=== PATIENT | female | born 1995 | race African-American/Black ===

== ENCOUNTER 2016-07-17 15:45 | Emergency (ER) | payer OTHER ==
[~2016-07-17 15:45] MED LIST: BENZ100C PO; CEPH500C PO; IBUP-1060 PO; Ibuprofen PO; OXYC-323 PO; PRED50TA PO
[2016-07-17 16:08] VITALS: BP 106/52
--- NOTE | 2016-07-17 16:15 | PHYS DOC ---
Past Medical History Past Medical History: Anemia, Anxiety, Asthma, Bipolar, Depression, Migraines Additional Past Medical Histor: mood disorder, ECZEMA Past Surgical History: Other Additional Past Surgical Histo: abscess left breast Alcohol Use: None Drug Use: None Adult General Chief Complaint Chief Complaint: SORE THROAT [facility] HPI Patient is a 20 year old female presents emergency Department today with complaint of atraumatic sore throat that began approximately 4 days ago. Patient also reports subjective fevers and chills. Patient also complains of nasal congestion and a nonproductive cough. She denies any shortness of breath, chest pain, exertional dyspnea, orthopnea or PND. She denies any known ill contacts patient denies antibiotic use, hospitalization or foreign travel within the past 90 days. Patient states that she has taken Tylenol today. Review of Systems Review of Systems Constitutional: Denies fever or chills [] Eyes: Denies change in visual acuity, redness, or eye pain [] HENT: Denies nasal congestion or sore throat [] Respiratory: Denies cough or shortness of breath [] Cardiovascular: No additional information not addressed in HPI [] GI: Denies abdominal pain, nausea, vomiting, bloody stools or diarrhea [] : Denies dysuria or hematuria [] Musculoskeletal: Denies back pain or joint pain [] Integument: Denies rash or skin lesions [] Neurologic: Denies headache, focal weakness or sensory changes [] Endocrine: Denies polyuria or polydipsia [] Allergies Allergies Allergies Coded Allergies Type Severity Reaction Last Updated Verified Penicillins Allergy Intermediate SWELLING 04/20/16 Yes influenza virus vaccine, specific Allergy Intermediate LOCAL REACTION "ARM SWELLS UP, REDNESS" 04/20/16 Yes Physical Exam Physical Exam Constitutional: Well developed, well nourished, no acute distress, non-toxic appearance. Patient is afebrile. HENT: Normocephalic, atraumatic, bilateral external ears normal, oropharynx moist, no oral exudates, clear rhinorrhea with boggy nasal mucosa. There is no trismus or hot potato speech. Posterior oropharynx is normal in appearance. There is no tonsillar exudative plaques or peritonsillar swelling. There is no peritonsillar swelling or uvular deviation. Eyes: PERRLA, EOMI, conjunctiva normal, no discharge. [] Neck: Normal range of motion, no tenderness, supple, no stridor. There is no meningismus. There is bilateral anterior and posterior cervical adenopathy. Cardiovascular:Heart rate regular rhythm, no murmur [] Lungs & Thorax: Bilateral breath sounds clear to auscultation [] Abdomen: Bowel sounds normal, soft, no tenderness, no masses, no pulsatile masses. [] Skin: Warm, dry, no erythema, no rash. Back: No tenderness, no CVA tenderness. [] Extremities: No tenderness, no cyanosis, no clubbing, ROM intact, no edema. [] Neurologic: Alert and oriented X 3, normal motor function, normal sensory function, no focal deficits noted. [] Psychologic: Affect normal, judgement normal, mood normal. [] Current Patient Data Vital Signs Vital Signs Date Time Temp Pulse Resp B/P Pulse Ox O2 Delivery O2 Flow Rate FiO2 07/17/16 16:08 98.6 95 18 100 Room Air 98.6 EKG EKG [] Radiology/Procedures Radiology/Procedures [] Course & Med Decision Making Course & Med Decision Making Rapid strep is negative. Patient's constellation of symptoms and physical exam are consistent with an upper respiratory infection. Based on inside of her symptoms. She is outside the room for treatment with influenza. Influenza test was not ordered. Dragon Disclaimer Dragon Disclaimer This electronic medical record was generated, in whole or in part, using a voice recognition dictation system. Departure Departure Impression: Primary Impression: Upper respiratory infection Disposition: 01 HOME, SELF-CARE Condition: GOOD Referrals: HENRY SMART Jr, MD (PCP) Patient Instructions: Upper Respiratory Infection, Adult, [id number] Additional Instructions: 1. Strep test today is negative. 2. Review the discharge instructions provided for self-care at home and reasons to return to the emergency department. 3. Follow-up with a primary care doctor within the next 5-7 days. If you do not have one, and a pamphlet is provided to you for assistance in finding one. Problem Qualifiers Primary Impression: Upper respiratory infection URI type: unspecified viral URI Qualified Code: J06.9 - Acute upper respiratory infection, unspecified LEXI SNOW Jul 17, 2016 16:15
[2016-07-18 08:00] LABS: NEGATIVE OBC STREP NEG; POSITIVE OBC STREP POS
== END 2016-07-17 20:46 | disposition home or self-care (01) ==
LOC: ER 15:45
DX: J06.9 Acute upper respiratory infection, unspecified (principal); J45.909 Unspecified asthma, uncomplicated; Z88.0 Allergy status to penicillin; Z88.7 Allergy status to serum and vaccine
CPT/HCPCS: 87070; 87880; 99284

== ENCOUNTER 2017-02-12 18:05 | Emergency (ER) | payer OTHER ==
[~2017-02-12] VITALS: Ht 160 cm; Wt 117.9 kg
[2017-02-12] MEDS ORDERED: IV NORMAL SALINE 1000ML BAG 1,000 ML IV SCH (18:25)
[2017-02-12] MEDS ORDERED: ONDANSETRON PF 4 MG/2 ML VIAL. IV ONE (18:30)
[2017-02-12 18:37] LABS: BILIRUBIN,URINE NEGATIVE (NEG); GLUCOSE,URINE NEGATIVE (NEG); NITRITE,URINE POSITIVE (NEG); PROTEIN,URINE NEGATIVE (NEG-TRACE); UROBILINOGEN,URINE 0.2 mg/dL (0.2 mg/dL)
[2017-02-12 18:42] LABS: BACTERIA,URINE MANY /HPF (0-FEW); RBC,URINE OCC /HPF (0-2); SQUAMOUS EPITHELIAL CELL,UR FEW /LPF
[2017-02-12 18:45] VITALS: BP 103/51
[2017-02-12 18:53] LABS: BASO % 0 % (0-3); EOS % 1 % (0-3); HEMOGLOBIN 11.3 g/dL (12.0-15.5); LYMPH # 1.3 x10^3/uL (1.0-4.8); LYMPH % 25 % (24-48); MEAN CORPUSCULAR HEMOGLOBIN 24 pg (25-35); MEAN CORPUSCULAR HGB CONC 31 g/dL (31-37); MEAN CORPUSCULAR VOLUME 76 fL (79-100); MONO % 9 % (0-9); NEUT % 65 % (31-73); PLATELET COUNT 149 x10^3/uL (140-400); RED BLOOD COUNT 4.77 x10^6/uL (3.50-5.40); RED CELL DISTRIBUTION WIDTH 18.2 % (11.5-14.5)
[2017-02-12 19:01] LABS: CALCIUM 8.9 mg/dL (8.5-10.1); CREATININE 0.6 mg/dL (0.6-1.0); GFR 154.2; POTASSIUM 3.4 mmol/L (3.5-5.1)
[2017-02-12 19:02] LABS: NEG OBC SER NEG; POS OBC SER POS
[2017-02-12 19:07] LABS: ALBUMIN 3.1 g/dL (3.4-5.0); ALBUMIN/GLOBULIN RATIO 0.8 (1.0-1.7); TOTAL BILIRUBIN 0.2 mg/dL (0.2-1.0); TOTAL PROTEIN 6.8 g/dL (6.4-8.2)
[2017-02-12] MEDS ORDERED: CONTRAST GIVEN MC PRN (19:45)
[2017-02-12] MEDS ORDERED: IOHEXOL 300 MG/ML 75 ML VIAL IV ONE (20:00)
[2017-02-12] MEDS ORDERED: IOHEXOL 240 MG/ML 50ML VIAL. PO ONE (20:00)
--- NOTE | 2017-02-12 20:34 | RAD ---
CT SCAN OF THE ABDOMEN AND PELVIS WITH IV CONTRAST. History: Nausea and vomiting and abdominal pain for 2 weeks Comparison:None. Procedure: Contiguous axial images of the abdomen and pelvis were performed after the administration of 75 cc of Omnipaque 300 IV contrast and oral contrast. CT Abdomen with contrast: Findings: Liver: Unremarkable Spleen: Top normal limits in size Pancreas: Unremarkable Adrenal Glands: Unremarkable Kidneys: Unremarkable There is no mass or lymphadenopathy. There is no free air. There is no free fluid. There is mild wall thickening of the splenic flexure of the colon without surrounding inflammation. CT Pelvis with Contrast: Findings: The urinary bladder appears normal. There is no free fluid. There is no lymphadenopathy. The appendix is normal. Impression: Mild wall thickening of the splenic flexure of the colon is consistent with colitis and could be infectious such as pseudomembranous colitis or could be inflammatory such as ulcerative colitis. There is no diverticulitis. There is no air in the wall to suggest ischemic colitis. PQRS Compliance Statement: One or more of the following individualized dose reduction techniques were utilized for this examination: 1. Automated exposure control 2. Adjustment of the mA and/or kV according to patient size 3. Use of iterative reconstruction technique Electronically signed by: Jarrell Anthony III, MD (02/12/2017 8:31 PM) [id number]
[2017-02-12] MEDS ORDERED: CIPR250T30 PO (21:24)
[2017-02-12] MEDS ORDERED: METR250T11 PO (21:24)
--- NOTE | 2017-02-12 21:24 | PHYS DOC ---
Past Medical History Past Medical History: Asthma Additional Past Medical Histor: MRSA in Left Breast wound Past Surgical History: No Surgical History Additional Past Surgical Histo: I/D Alcohol Use: None Drug Use: None Adult General Chief Complaint Chief Complaint: ABDOMINAL PAIN HPI HPI Patient is a 21 year old female brought to the ED by her mother with the complaint of some abdominal discomfort for about 2 weeks. She's had crampy abdominal pain, feels like period cramps but it's all over her abdomen. She's had some vomiting off and on, she vomited yesterday but not today. She's nauseated right now. They did stop it "go chicken go" on the way here and she ate 2 chicken strips. She has had a little diarrhea but the last time was last week. No blood in her vomit or diarrhea. She's had no UTI symptoms. She doesn't think she is , she's been using a control patch for 8 months. Her last menstrual period was about January 12-. She has taken 3 tests and they were all negative. She denies fever or chills. The pain has occasionally woken her up at night. She's had anorexia and also afraid to eat because her stomach will hurt. She's never had anything like this before. She has not had abdominal surgery. No one else at home is sick. Review of Systems Review of Systems Constitutional: Denies fever or chills [] GI: As in history of present illness : Denies dysuria or hematuria [] Current Medications Current Medications Current Medications Medications (Trade) Dose Ordered Sig/Marisol Start Time Stop Time Status Last Admin Dose Admin Ciprofloxacin (Cipro) 500 mg 1X ONCE 02/12/17 21:30 02/12/17 21:31 DC 02/12/17 21:31 500 MG Info (Do NOT chart on this entry -- for MONITORING) 1 each PRN DAILY PRN 02/12/17 19:45 02/12/17 21:34 DC Iohexol (Omnipaque 240 Mg/ml) 30 ml 1X ONCE 02/12/17 20:00 02/12/17 20:01 DC 02/12/17 20:10 30 ML Iohexol (Omnipaque 300 Mg/ml) 75 ml 1X ONCE 02/12/17 20:00 02/12/17 20:01 DC 02/12/17 20:10 75 ML Ondansetron HCl (Zofran) 4 mg 1X ONCE 02/12/17 18:30 02/12/17 18:40 DC 02/12/17 18:36 4 MG Sodium Chloride 1,000 ml @ 1,000 mls/hr Q1H 02/12/17 18:25 02/12/17 19:24 DC 02/12/17 18:36 1,000 MLS/HR Allergies Allergies Allergies Coded Allergies Type Severity Reaction Last Updated Verified Penicillins Allergy Intermediate SWELLING 04/20/16 Yes influenza virus vaccine, specific Allergy Intermediate LOCAL REACTION "ARM SWELLS UP, REDNESS" 04/20/16 Yes Physical Exam Physical Exam Constitutional: Well developed, well nourished, no acute distress, non-toxic appearance. Alert, mentating normally, ambulatory, no distress whatsoever ambulating to the room or hopping up on the cart for exam. HENT: Normocephalic, atraumatic, bilateral external ears normal, nose normal. [ ] Eyes: conjunctiva normal, no discharge. [] Neck: Normal range of motion, no stridor. [] Cardiovascular:Heart rate regular rhythm, no murmur [] Lungs & Thorax: Bilateral breath sounds clear to auscultation [] Abdomen: Obese, Bowel sounds normal, soft, no masses, no pulsatile masses. Mildly tender to palpation throughout. No localized tenderness. No rebound or guarding. Skin: Warm, dry, no erythema, no rash. [] Extremities: No tenderness, no cyanosis, no clubbing, ROM intact, no edema. [] Neurologic: Alert and oriented X 3, normal motor function, normal sensory function, no focal deficits noted. [] Current Patient Data Vital Signs Vital Signs Date Time Temp Pulse Resp B/P (MAP) Pulse Ox O2 Delivery O2 Flow Rate FiO2 02/12/17 18:45 76 20 103/51 (68) 100 Room Air 02/12/17 18:18 99.1 99.1 Lab Values Laboratory Tests Test 02/12/17 17:23 02/12/17 18:15 02/12/17 18:42 POC Urine HCG, Qualitative Hcg negative (Negative) Urine Collection Type Unknown Urine Color Yellow Urine Clarity Cloudy Urine pH 6.0 Urine Specific [place] 1.020 Urine Protein Negative mg/dL (NEG-TRACE) Urine Glucose (UA) Negative mg/dL (NEG) Urine Ketones (Stick) Negative mg/dL (NEG) Urine Blood Negative (NEG) Urine Nitrite Positive (NEG) Urine Bilirubin Negative (NEG) Urine Urobilinogen Dipstick 0.2 mg/dL (0.2 mg/dL) Urine Leukocyte Esterase Large (NEG) Urine RBC Occ /HPF (0-2) Urine WBC 11-20 /HPF (0-4) Urine Squamous Epithelial Cells Few /LPF Urine Bacteria Many /HPF (0-FEW) Urine Mucus Mod /LPF White Blood Count 5.0 x10^3/uL (4.0-11.0) Red Blood Count 4.77 x10^6/uL (3.50-5.40) Hemoglobin 11.3 g/dL (12.0-15.5) L Hematocrit 36.0 % (36.0-47.0) Mean Corpuscular Volume 76 fL (79-100) L Mean Corpuscular Hemoglobin 24 pg (25-35) L Mean Corpuscular Hemoglobin Concent 31 g/dL (31-37) Red Cell Distribution Width 18.2 % (11.5-14.5) H Platelet Count 149 x10^3/uL (140-400) Neutrophils (%) (Auto) 65 % (31-73) Lymphocytes (%) (Auto) 25 % (24-48) Monocytes (%) (Auto) 9 % (0-9) Eosinophils (%) (Auto) 1 % (0-3) Basophils (%) (Auto) 0 % (0-3) Neutrophils # (Auto) 3.2 x10^3uL (1.8-7.7) Lymphocytes # (Auto) 1.3 x10^3/uL (1.0-4.8) Monocytes # (Auto) 0.4 x10^3/uL (0.0-1.1) Eosinophils # (Auto) 0.1 x10^3/uL (0.0-0.7) Basophils # (Auto) 0.0 x10^3/uL (0.0-0.2) Sodium Level 142 mmol/L (136-145) Potassium Level 3.4 mmol/L (3.5-5.1) L Chloride Level 107 mmol/L (98-107) Carbon Dioxide Level 27 mmol/L (21-32) Anion Gap 8 (6-14) Blood Urea Nitrogen 7 mg/dL (7-20) Creatinine 0.6 mg/dL (0.6-1.0) Estimated GFR (Cockcroft-Gault) 154.2 BUN/Creatinine Ratio 12 (6-20) Glucose Level 114 mg/dL (70-99) H Calcium Level 8.9 mg/dL (8.5-10.1) Total Bilirubin 0.2 mg/dL (0.2-1.0) Aspartate Amino Transferase (AST) 19 U/L (15-37) Alanine Aminotransferase (ALT) 25 U/L (14-59) Alkaline Phosphatase 53 U/L (46-116) Total Protein 6.8 g/dL (6.4-8.2) Albumin 3.1 g/dL (3.4-5.0) L Albumin/Globulin Ratio 0.8 (1.0-1.7) L Lipase 247 U/L (73-393) Serum Test, Qualitative Negative (NEG) Laboratory Tests 02/12/17 18:42 Laboratory Tests 02/12/17 18:42 EKG EKG [] Radiology/Procedures Radiology/Procedures CT scan of the abdomen and pelvis read by the radiologist. The only significant finding is mild wall thickening of the splenic flexure of the colon, consistent with colitis. No diverticulitis. No other findings.[] Course & Med Decision Making Course & Med Decision Making Pertinent Labs and Imaging studies reviewed. (See chart for details) Patient remained stable and comfortable in the ED, watching a movie on her phone with her mom. She had no vomiting in the ED. Labs unremarkable except urinalysis is equivocally positive for UTI. CT scan consistent with possibly colitis. Her history does not really suggest a viral syndrome before the symptoms began or currently. I believe at this time we should treat her for colitis with antibiotics, and have chosen an antibiotic that will cover her UTI as well. Discussed this with the patient and her mother. I urged her to follow up with primary care she is not improving in a few days. See instructions for plan. [] Dragon Disclaimer Dragon Disclaimer This electronic medical record was generated, in whole or in part, using a voice recognition dictation system. Departure Departure Impression: Primary Impression: Abdominal pain Additional Impressions: Colitis UTI (urinary tract infection) Disposition: HOME, SELF-CARE Condition: STABLE Referrals: NO PCP (PCP) Patient Instructions: Colitis, Urinary Tract Infection, [id number] Additional Instructions: Today, tests showed that you do have a urinary tract infection, UTI, also called a bladder infection or kidney infection. CT scan showed that you might have an inflamed colon called colitis. We will treat both of these with antibiotics. Take antibiotics as directed. Drink plenty of fluids. Until you're pain is better, stick with mostly clear liquids or bland diet. Nothing spicy or greasy. If worse, return to emergency. Scripts Ciprofloxacin Hcl (CIPRO) 250 Mg Tablet 250 MG PO BID for 7 Days, #20 TAB Prov: CHARMAINE ANDERSON MD 02/12/17 Metronidazole (METRONIDAZOLE) 250 Mg Tablet 1 TAB PO TID, #30 TAB Prov: CHARMAINE ANDERSON MD 02/12/17 Problem Qualifiers CHARMAINE ANDERSON MD Feb 12, 2017 21:24
[2017-02-12] MEDS ORDERED: CIPROFLOXACIN HCL 250 MG TABLET. PO ONE (21:30)
== END 2017-02-12 21:34 | disposition home or self-care (01) ==
LOC: ER 18:05
DX: K52.9 Noninfective gastroenteritis and colitis, unspecified (principal); N39.0 Urinary tract infection, site not specified; J45.909 Unspecified asthma, uncomplicated; Z86.14 Personal history of Methicillin resistant Staphylococcus aureus infection; Z88.0 Allergy status to penicillin; Z88.7 Allergy status to serum and vaccine
CPT/HCPCS: 36415; 74177; 80053; 81001; 81025; 83690; 84703; 85025; 87086; 87186; 96361; 96374; 99285; J2405; J7030; Q9966; Q9967

== ENCOUNTER 2017-07-02 12:18 | Emergency (ER) | payer OTHER ==
[2017-07-02 12:42] LABS: URINE HCG POC HCG NEGATIVE (Negative)
[2017-07-02 12:50] LABS: ADD MAN DIFF? NO
[2017-07-02 12:56] LABS: BASO % 0 % (0-3); EOS # 0.1 x10^3/uL (0.0-0.7); EOS % 1 % (0-3); HEMATOCRIT 42.1 % (36.0-47.0); HEMOGLOBIN 13.8 g/dL (12.0-15.5); LYMPH # 1.9 x10^3/uL (1.0-4.8); LYMPH % 33 % (24-48); MEAN CORPUSCULAR HEMOGLOBIN 26 pg (25-35); MEAN CORPUSCULAR HGB CONC 33 g/dL (31-37); MEAN CORPUSCULAR VOLUME 78 fL (79-100); MONO # 0.8 x10^3/uL (0.0-1.1); MONO % 14 % (0-9); NEUT # 3.1 x10^3uL (1.8-7.7); NEUT % 52 % (31-73); PLATELET COUNT 182 x10^3/uL (140-400); RED BLOOD COUNT 5.39 x10^6/uL (3.50-5.40); RED CELL DISTRIBUTION WIDTH 16.4 % (11.5-14.5); WHITE BLOOD COUNT 5.8 x10^3/uL (4.0-11.0)
[2017-07-02 13:03] LABS: BILIRUBIN,URINE SMALL (NEG); CLARITY,URINE CLOUDY; COLOR,URINE RED; GLUCOSE,URINE NEGATIVE (NEG); NITRITE,URINE NEGATIVE (NEG); PROTEIN,URINE 100 mg/dL (NEG-TRACE)
[2017-07-02 13:05] LABS: ANION GAP 7 (6-14); BLOOD UREA NITROGEN 9 mg/dL (7-20); BUN/CREATININE RATIO 13 (6-20); CALCIUM 8.9 mg/dL (8.5-10.1); CARBON DIOXIDE 27 mmol/L (21-32); CHLORIDE 106 mmol/L (98-107); CREATININE 0.7 mg/dL (0.6-1.0); GFR 129.1; GLUCOSE 78 mg/dL (70-99); POTASSIUM 4.1 mmol/L (3.5-5.1); SODIUM 140 mmol/L (136-145)
[2017-07-02 13:11] LABS: ALBUMIN 3.6 g/dL (3.4-5.0); ALBUMIN/GLOBULIN RATIO 0.9 (1.0-1.7); ALK PHOS 64 U/L (46-116); ALT (SGPT) 17 U/L (14-59); AST (SGOT) 15 U/L (15-37); TOTAL BILIRUBIN 0.4 mg/dL (0.2-1.0); TOTAL PROTEIN 7.5 g/dL (6.4-8.2)
[2017-07-02 13:21] LABS: BACTERIA,URINE FEW /HPF (0-FEW); RBC,URINE TNTC /HPF (0-2); WBC,URINE 0 /HPF (0-4)
[2017-07-02 13:23] LABS: SQUAMOUS EPITHELIAL CELL,UR MOD /LPF
[2017-07-02] MEDS: IV NORMAL SALINE 1000ML BAG 1,000 ML IV ×2 (13:43)
[2017-07-02] MEDS: KETOROLAC 15 MG/ML VIAL. IV ×2 (13:43)
== END 2017-07-02 14:40 | disposition home or self-care (01) ==
LOC: ER 12:18
DX: M79.1 Myalgia (principal); R10.9 Unspecified abdominal pain; R53.1 Weakness; J45.909 Unspecified asthma, uncomplicated; F12.10 Cannabis abuse, uncomplicated; Z88.0 Allergy status to penicillin; Z88.7 Allergy status to serum and vaccine
CPT/HCPCS: 36415; 80053; 81001; 81025; 85025; 87086; 87186; 96361; 96374; 99284-25; J1885; J7030

== ENCOUNTER 2017-08-24 11:47 | Emergency (ER) | payer OTHER ==
[2017-08-24] MEDS: HYDROcodone/APAP 5/325MG 1 TAB TABLET PO (12:35)
[2017-08-24] MEDS: CYCLOBENZAPRINE 10 MG TABLET. PO (12:35)
[2017-08-24 13:04] LABS: URINE HCG POC HCG NEGATIVE (Negative)
== END 2017-08-24 14:37 | disposition home or self-care (01) ==
LOC: ER 11:47
DX: M79.1 Myalgia (principal); J45.909 Unspecified asthma, uncomplicated; F31.9 Bipolar disorder, unspecified; F12.10 Cannabis abuse, uncomplicated; Z88.0 Allergy status to penicillin; Z88.7 Allergy status to serum and vaccine; V43.62XA Car passenger injured in collision with other type car in traffic accident, initial encounter; Y93.89 Activity, other specified; Y92.410 Unspecified street and highway as the place of occurrence of the external cause; Y99.8 Other external cause status
CPT/HCPCS: 71046; 72040; 72072; 72100; 73030; 73590; 76700; 81025; 99284-25

== ENCOUNTER 2018-01-06 10:26 | Emergency (ER) | payer OTHER | END 2018-01-06 11:08 | disposition home or self-care (01) | LOC: ER 10:26 | DX: H61.22 Impacted cerumen, left ear (principal); H61.23 Impacted cerumen, bilateral (principal); H66.92 Otitis media, unspecified, left ear; J45.909 Unspecified asthma, uncomplicated; F31.9 Bipolar disorder, unspecified; Z88.0 Allergy status to penicillin; Z88.7 Allergy status to serum and vaccine | CPT/HCPCS: 99283 ==

== ENCOUNTER 2018-01-18 12:55 | Emergency (ER) | payer OTHER ==
[~2018-01-18] VITALS: Ht 149.9 cm; Wt 122.5 kg
[~2018-01-18 12:55] MED LIST changes: +CARB192C OT; +CEFD300C PO; +CIPR250T30 PO; +CYCL10TA2 PO; +METR250T11 PO; +NAPR500T8 PO
[2018-01-18] MEDS ORDERED: HYDROcodone/APAP 5/325MG 1 TAB TABLET PO ONE (13:15)
[2018-01-18] MEDS ORDERED: diphenhydrAMINE HCL 25 MG CAPSULE PO ONE (13:15)
[2018-01-18] MEDS ORDERED: DEXAMETHASONE SOD PHOS 4 MG/ML VIAL IM ONE (13:15)
[2018-01-18 13:20] VITALS: BP 117/62
--- NOTE | 2018-01-18 13:30 | PHYS DOC ---
Past Medical History Past Medical History: Asthma, Bipolar, Depression Additional Past Medical Histor: MRSA in Left Breast wound Past Surgical History: No Surgical History Additional Past Surgical Histo: I/D Alcohol Use: None Drug Use: Marijuana Adult General Chief Complaint Chief Complaint: EARACHE/EAR PAIN [facility] HPI Patient is a 22 year old female presents to the ED complaining of left ear pain 4 days. Patient was seen on January 06 in the ED and treated with Cefdinir, muscle relaxers and Debrox. Patient states she has been using all the treatments that she was given. States that the antibiotic's improved her ear pain but it came back 4 days after she stopped the antibiotics. Describes the pain as sharp. Rates the pain as 6 out of 10. Associated symptoms include sore throat, rhinorrhea and headache. Denies neck pain, chest pain, shortness of breath, photophobia, weakness, dizziness, rash, vision changes, fever or nausea/ vomiting. Review of Systems Review of Systems Constitutional: Denies fever or chills [] Eyes: Denies change in visual acuity, redness, or eye pain [] HENT: Complains of rhinorrhea, sore throat, ear pain. Respiratory: Denies cough or shortness of breath [] Cardiovascular: No additional information not addressed in HPI [] GI: Denies abdominal pain, nausea, vomiting, bloody stools or diarrhea [] : Denies dysuria or hematuria [] Musculoskeletal: Denies back pain or joint pain [] Integument: Denies rash or skin lesions [] Neurologic: Complains of headache. Denies focal weakness or sensory changes [] All other systems were reviewed and found to be within normal limits, except as documented in this note. Current Medications Current Medications Current Medications Medications (Trade) Dose Ordered Sig/[facility] Start Time Stop Time Status Last Admin Dose Admin Acetaminophen/ Hydrocodone Bitart (Lortab 5/325) 1 tab 1X ONCE 01/18/18 13:15 01/18/18 13:16 DC 01/18/18 14:23 1 TAB Dexamethasone Sodium Phosphate (Decadron) 8 mg 1X ONCE 01/18/18 13:15 01/18/18 13:16 DC 01/18/18 14:26 8 MG Diphenhydramine HCl (Benadryl) 25 mg 1X ONCE 01/18/18 13:15 01/18/18 13:16 DC 01/18/18 14:23 25 MG Allergies Allergies Allergies Coded Allergies Type Severity Reaction Last Updated Verified Penicillins Allergy Intermediate SWELLING 04/20/16 Yes influenza virus vaccine, specific Allergy Intermediate LOCAL REACTION "ARM SWELLS UP, REDNESS" 04/20/16 Yes Physical Exam Physical Exam Constitutional: Well developed, well nourished, no acute distress, non-toxic appearance. [] HENT: Normocephalic, atraumatic, bilateral cerumen impaction. unable to visualize TM. oropharynx moist, no oral exudates, nose normal. Mild pharyngeal erythema. Uvula midline. [] Eyes: PERRLA, EOMI, conjunctiva normal, no discharge. [] Neck: Normal range of motion, no tenderness, supple, no stridor. [] Cardiovascular:Heart rate regular rhythm, no murmur [] Lungs & Thorax: Bilateral breath sounds clear to auscultation [] Abdomen: Bowel sounds normal, soft, no tenderness, no masses, no pulsatile masses. [] Skin: Warm, dry, no erythema, no rash. [] Neurologic: Alert and oriented X 3, normal motor function, normal sensory function, no focal deficits noted. [] Psychologic: Affect normal, judgement normal, mood normal. [] Current Patient Data Vital Signs Vital Signs Date Time Temp Pulse Resp B/P (MAP) Pulse Ox O2 Delivery O2 Flow Rate FiO2 01/18/18 13:20 98.3 75 16 117/62 (80) 99 Room Air 98.3 Lab Values Laboratory Tests Test 01/18/18 14:50 Group A Streptococcus Rapid Positive (NEGATIVE) EKG EKG [] Radiology/Procedures Radiology/Procedures [] Course & Med Decision Making Course & Med Decision Making Pertinent Labs and Imaging studies reviewed. (See chart for details) Patient eloped from ED after receiving medications in the ED (patient refused IM decadron). Patient had a positive strep test. Test alarm was going off in the ED. Patient unhappy since she wasn't feeling well. Asked patient to stay in the ED until I can write her prescriptions for antibiotics. Patient unwilling to wait for move to lobby until scripts were written. Patient made aware that her condition will likely not improved without antibiotics. Patient verbalizes understanding. Patient eloped prior to signing AMA form. 1547 on 01/18/18. Call placed and VM left. Stated patient needed antibiotics and will leave script at front office administrator if she would like to come pick them up. Alexsandra Disclaimer Alexsandra Disclaimer This electronic medical record was generated, in whole or in part, using a voice recognition dictation system. Departure Departure Impression: Primary Impression: Strep pharyngitis Disposition: AGAINST MEDICAL ADVICE (PATIENT ELOPED) Condition: STABLE Referrals: NO PCP (PCP) Scripts Clindamycin Hcl (CLINDAMYCIN HCL) 300 Mg Capsule 300 MG PO TID for 10 Days, #30 CAP Prov: VESNA MCFADDEN 01/18/18 VESNA MCFADDEN Jan 18, 2018 13:30
[2018-01-18] MEDS ORDERED: CLIN300C8 PO (15:49)
== END 2018-01-18 14:36 | disposition left against medical advice (07) ==
LOC: ER 12:55
DX: J02.0 Streptococcal pharyngitis (principal); J45.909 Unspecified asthma, uncomplicated; F31.9 Bipolar disorder, unspecified; Z86.14 Personal history of Methicillin resistant Staphylococcus aureus infection; Z88.0 Allergy status to penicillin; Z88.7 Allergy status to serum and vaccine
CPT/HCPCS: 69209; 87880; 96372; 99283; J1100; Q0163

== ENCOUNTER 2018-09-11 17:26 | Emergency (ER) | payer OTHER ==
[~2018-09-11] VITALS: Ht 149.9 cm; Wt 102.5 kg
[~2018-09-11 17:26] MED LIST changes: +CLIN300C8 PO; +METR-111 PO; -METR250T11 PO; -OXYC-323 PO; +OXYC1TAB15 PO
[2018-09-11 18:00] VITALS: BP 107/60
--- NOTE | 2018-09-11 19:37 | PHYS DOC ---
Past Medical History Past Medical History: Asthma, MRSA, Other Additional Past Medical Histor: ECZEMA Past Surgical History: Other Additional Past Surgical Histo: LEFT BREAST SURGERY DUE TO MRSA Alcohol Use: Rarely Drug Use: None Adult General Chief Complaint Chief Complaint: NAUSEA/VOMITING/DIARRHA HPI HPI 22-year-old female presents to ER via POV with her friend for multiple complaints. On initial exam patient's friend is at bedside and patient is anxious and at times rude with responses. Patient states she has had back pain, decreased appetite, and anxiety. Patient states she has 4 young children at home and is a single parent and with decreased sleep and stress of school work for herself she just needs "something for the pain" and "something to make me sleep". Patient reports she had some type of tissue expelled from her vagina last week denies any abnormal bleeding or vaginal discharge currently. Patient denies having any recent Dr. examination as she reports her symptoms have been ongoing for several weeks. She reports she has not taken any pain medication today but after she said that then she provides conflicting story and reports she had taken Tylenol and ibuprofen earlier today. Patient reports she has had no appetite however during initial discussion she then adds that she is hungry and tired of waiting in the ER. During initial exam patient interrupted multiple times at times raised her voice stating she was just wanting to leave if she was not getting anything for pain or to help with her sleep. This provider attempted to discuss her symptoms and options for treatment which were interrupted multiple times with patient stating she didn't want anything done and was just going to leave as she had school work to do and children to care for. Patient states she has had increased anxiety she did not make any suicidal comments during initial exam. Review of Systems Review of Systems Patient was evaluated on her symptoms and interrupted discussion multiple times with complaints and rude behavior and did not provide review of systems. Allergies Allergies Allergies Coded Allergies Type Severity Reaction Last Updated Verified Penicillins Allergy Intermediate SWELLING 04/20/16 Yes influenza virus vaccine, specific Allergy Intermediate LOCAL REACTION "ARM SWELLS UP, REDNESS" 04/20/16 Yes Physical Exam Physical Exam Constitutional: Well developed, well nourished, non-toxic appearance. [] HENT: Normocephalic, atraumatic, oropharynx moist Eyes: Pupils equal , conjunctiva normal, no discharge. [] Neck: Normal range of motion, supple Cardiovascular: Heart rate tachycardic at times with pt yelling and anxious during discussion Lungs & Thorax: Resp. equal/nonlabored Back: Full ROM Extremities: ROM intact Neurologic: Alert and oriented X 3, normal motor function, normal sensory function, no focal deficits noted. [] Psychologic: Anxious, rude behavior. Patient was uncooperative during initial exam and refused exam/tx/care Current Patient Data Vital Signs Vital Signs Date Time Temp Pulse Resp B/P (MAP) Pulse Ox O2 Delivery O2 Flow Rate FiO2 09/11/18 18:00 98.5 67 12 107/60 (76) 100 Room Air 98.5 EKG EKG [] Radiology/Procedures Radiology/Procedures [] Course & Med Decision Making Course & Med Decision Making Patient presented to the ER with multiple vague complaints of ongoing medical symptoms. During initial exam patient voiced frustration to ongoing symptoms, ER wait, and request for pain/sleep medication. Multiple attempts to discuss patient's symptoms and options for testing were met with patient interacting with rude comments, increased anxiety and uncooperative behavior. Discussion had heart rate of 62 at time of triage and other vital signs were stable. She was afebrile. Following multiple attempts to discuss options for treatment with patient patient stated she wanted to leave ER with no evaluation or treatment and she would find a doctor to follow-up with. Patient had steady unassisted gait at bedside. Patient was anxious but at no time made comments on suicidal ideations or had signs of self-harm. Patient's friend was with her while in the ER and witnessed this provider's encounter with her. RN was advised of patient wanting to leave AMA without testing her evaluation will have patient sign AMA form. Dragon Disclaimer Dragon Disclaimer This electronic medical record was generated, in whole or in part, using a voice recognition dictation system. Departure Departure Impression: Primary Impression: Left against medical advice Disposition: 07 AGAINST MEDICAL ADVICE Referrals: UNKNOWN PCP NAME (PCP) JOCELYNN LAWRENCE APRN Sep 11, 2018 19:37
== END 2018-09-11 19:39 | disposition left against medical advice (07) ==
LOC: ER 17:26
DX: F41.9 Anxiety disorder, unspecified (principal); R00.0 Tachycardia, unspecified; M54.9 Dorsalgia, unspecified; J45.909 Unspecified asthma, uncomplicated; Z88.7 Allergy status to serum and vaccine; Z88.0 Allergy status to penicillin
CPT/HCPCS: 99281

== ENCOUNTER 2019-05-31 20:56 | Emergency (ER) | payer MEDICAID, OTHER ==
[~2019-05-31] VITALS: Ht 149.9 cm; Wt 72.6 kg
[2019-05-31 22:25] VITALS: BP 121/68
[2019-05-31 23:44] LABS: INFLUENZA A PATIENT NEGATIVE (NEGATIVE); INFLUENZA B PATIENT NEGATIVE (NEGATIVE)
--- NOTE | 2019-06-01 00:22 | PHYS DOC ---
Past Medical History Past Medical History: Asthma, MRSA, Other Additional Past Medical Histor: ECZEMA (VESNA MORATAYA APRN) Past Surgical History: Other Additional Past Surgical Histo: LEFT BREAST SURGERY DUE TO MRSA (VESNA MORATAYA APRN) Alcohol Use: Rarely Drug Use: None (VESNA MORATAYA APRN) Attending Signature I have participated in the care of this patient and I have reviewed and agree with all pertinent clinical information above including history, exam, and recommendations. (KRYS GUILLERMO MD) Adult General Chief Complaint Chief Complaint: COUGH HPI HPI Patient is a 23 year old female who presents with body aches, fatigue for the past month. Reports for the last couple days, she has felt a little worse. Does report she has had some discomfort to her left ear and a fever over the last day. States she just is uncomfortable, cannot sleep. States she does have children at home will been ill with a cold, but none has had other symptoms. Reports she feels like she is worse. Denies any cough, denies taking any medications other than Tylenol and ibuprofen. (VESNA MORATAYA APRN) Review of Systems Review of Systems Constitutional: Reports fever on and off for the last couple days, does report fatigue] Eyes: Denies change in visual acuity, redness, or eye pain [] HENT: Denies nasal congestion or sore throat does complain of some discomfort to her left ear [] Respiratory: Reports occasional cough or shortness of breath [] Cardiovascular: No additional information not addressed in HPI [] GI: Denies abdominal pain, nausea, vomiting, bloody stools or diarrhea [] : Denies dysuria or hematuria [] Musculoskeletal: Denies back pain or joint pain [] Integument: Denies rash or skin lesions [] Neurologic: Denies headache, focal weakness or sensory changes [] Endocrine: Denies polyuria or polydipsia [] All other systems were reviewed and found to be within normal limits, except as documented in this note. (VESNA MORATAYA APRN) Allergies Allergies Allergies Coded Allergies Type Severity Reaction Last Updated Verified Penicillins Allergy Intermediate SWELLING 04/20/16 Yes influenza virus vaccine, specific Allergy Intermediate LOCAL REACTION "ARM SWELLS UP, REDNESS" 04/20/16 Yes (KRYS GUILLERMO MD) Physical Exam Physical Exam Constitutional: Well developed, well nourished, no acute distress, non-toxic appearance. [] HENT: Normocephalic, atraumatic, bilateral external ears normal, oropharynx moist, no oral exudates, nose normal. [] Eyes: PERRLA, EOMI, conjunctiva normal, no discharge. [] Neck: Normal range of motion, no tenderness, supple, no stridor. [] Cardiovascular:Heart rate regular rhythm, no murmur [] Lungs & Thorax: Bilateral breath sounds clear to auscultation [] Abdomen: Bowel sounds normal, soft, no tenderness, no masses, no pulsatile masses. [] Skin: Warm, dry, no erythema, no rash. [] Back: No tenderness, no CVA tenderness. [] Extremities: No tenderness, no cyanosis, no clubbing, ROM intact, no edema. [] Neurologic: Alert and oriented X 3, normal motor function, normal sensory function, no focal deficits noted. [] Psychologic: Affect normal, judgement normal, mood normal. [] (VESNA MORATAYA APRN) Current Patient Data Vital Signs Vital Signs Date Time Temp Pulse Resp B/P (MAP) Pulse Ox O2 Delivery O2 Flow Rate FiO2 05/31/19 22:25 98.8 51 18 121/68 (85) 100 Room Air 98.8 (KRYS GUILLERMO MD) Lab Values Laboratory Tests Test 05/31/19 22:25 Influenza Type A Antigen Negative (NEGATIVE) Influenza Type B Antigen Negative (NEGATIVE) (KRYS GUILLERMO MD) EKG EKG [] (VESNA MORATAYA APRN) Radiology/Procedures Radiology/Procedures [] (VESNA MORATAYA APRN) Course & Med Decision Making Course & Med Decision Making Pertinent Labs and Imaging studies reviewed. (See chart for details) [Discussed findings with patient, discussed no need for antibiotics at this time, we'll continue hydration and prescription cough medication for the nausea and coughing.] (VESNA MORATAYA APRN) Dragon Disclaimer Dragon Disclaimer This electronic medical record was generated, in whole or in part, using a voice recognition dictation system. (VESNA MORATAYA APRN) Departure Departure Impression: Primary Impression: Upper respiratory infection Disposition: 01 HOME, SELF-CARE Condition: GOOD Referrals: NO PCP (PCP) Patient Instructions: Upper Respiratory Infection, Adult, [id number] Additional Instructions: As we discussed, make sure you're drinking plenty of fluid. Take the cough medication as prescribed. He may take Tylenol or ibuprofen as needed for fever. Make sure you are washing her hands.. Scripts Promethazine/Dextromethorphan (Promethazine-Dm Syrup) 473 Ml Syrup 5 ML PO PRN Q4HRS PRN for cough for 4 Days, #120 ML 0 Refills Prov: VESNA MORATAYA APRN 06/01/19 Problem Qualifiers Primary Impression: Upper respiratory infection URI type: acute nasopharyngitis (common cold) Qualified Codes: J00 - Acute nasopharyngitis [common cold] VESNA MORATAYA APRN Jun 01, 2019 00:22 KRYS GUILLERMO MD Jun 01, 2019 02:39
[2019-06-01] MEDS ORDERED: D-ME473S14 PO (00:31)
== END 2019-06-01 00:36 | disposition home or self-care (01) ==
LOC: ER 20:56
DX: J00 Acute nasopharyngitis [common cold] (principal); J45.909 Unspecified asthma, uncomplicated; Z86.14 Personal history of Methicillin resistant Staphylococcus aureus infection; Z88.0 Allergy status to penicillin; Z88.7 Allergy status to serum and vaccine
CPT/HCPCS: 87804; 99284

== ENCOUNTER 2020-05-04 | Emergency (ER) | payer MEDICAID ==
[~2020-05-04] VITALS: Ht 149.9 cm; Wt 83.0 kg
[~2020-05-04] MED LIST changes: -CLIN300C8 PO; +CLIN300C9 PO; +D-ME473S14 PO
[2020-05-04] MEDS ORDERED: KETOROLAC 30 MG/ML VIAL. IM ONE (01:15)
[2020-05-04] MEDS ORDERED: HYDROcodone/APAP 5/325MG 1 TAB TABLET PO ONE (01:15)
[2020-05-04] MEDS ORDERED: ORPHENADRINE CITRATE 60 MG/2 ML VIAL. IM ONE (01:15)
--- NOTE | 2020-05-04 02:02 | PHYS DOC ---
Past Medical History Past Medical History: Asthma, Depression, MRSA, Other Additional Past Medical Histor: ECZEMA, BIPOLAR Past Surgical History: Other Additional Past Surgical Histo: LEFT BREAST SURGERY DUE TO MRSA Smoking Status: Current Every Day Smoker Alcohol Use: None Drug Use: None General Adult EDM: Chief Complaint: BACK PAIN OR INJURY HPI: HPI: Patient is a 24 year old female who presents with low back pain after a fall down ten stairs. The pt tripped on some clothes that were laying on the stairs. She describes the pain as 9/10 and located in the middle of her lumbar region. Pt denies hitting her head or losing consciousness. Pt has full ROM in back but states it hurts to move. Denies any numbness or tingling. Pt took 800mg of ibuprofen and that did not help the pain. Mom was present and aided in history taking. Review of Systems: Review of Systems: Constitutional: Denies fever or chills Eyes: Denies redness or eye pain HENT: Denies nasal congestion or sore throat Respiratory: Denies cough or shortness of breath Cardiovascular: Denies chest pain or palpitations GI: Denies abdominal pain, nausea, or vomiting : Denies dysuria or hematuria Musculoskeletal: Denies joint pain, endorses lower back pain Integument: Denies rash or skin lesions Neurologic: Denies headache, focal weakness or sensory changes Complete systems were reviewed and found to be within normal limits, except as documented in this note. Current Medications: Current Medications Medications (Trade) Dose Ordered Sig/Marisol Start Time Stop Time Status Last Admin Dose Admin Acetaminophen/ Hydrocodone Bitart (Lortab 5/325) 1 tab 1X ONCE 05/04/20 01:15 05/04/20 01:32 DC 05/04/20 01:21 1 TAB Ketorolac Tromethamine (Toradol 30mg Vial) 30 mg 1X ONCE 05/04/20 01:15 05/04/20 01:16 DC Orphenadrine Citrate (Norflex) 60 mg 1X ONCE 05/04/20 01:15 05/04/20 01:16 DC Allergies: Allergies: Allergies Coded Allergies Type Severity Reaction Last Updated Verified Penicillins Allergy Intermediate SWELLING 04/20/16 Yes influenza virus vaccine, specific Allergy Intermediate LOCAL REACTION "ARM SWELLS UP, REDNESS" 04/20/16 Yes Physical Exam: PE: Constitutional: Well developed, well nourished, tearful, uncomfortable, non-toxi c appearance HENT: Normocephalic, atraumatic Neck: Normal range of motion, no tenderness, supple Lungs & Thorax: No respiratory distress, equal chest rise and fall Skin: Warm, dry, no erythema, no rash Back: No CVA tenderness, tenderness to palpation along midline L1-L5, ROM limited due to pain, no C spine tenderness Extremities: No tenderness, ROM intact, no edema Neurologic: Alert and oriented X 3, normal motor function, normal sensory function, no focal deficits noted Psychologic: Affect normal, judgment normal Current Patient Data: Labs: Laboratory Tests Test 05/04/20 00:22 POC Urine HCG, Qualitative Hcg negative (Negative) Vital Signs: Vital Signs Date Time Temp Pulse Resp B/P (MAP) Pulse Ox O2 Delivery O2 Flow Rate FiO2 05/04/20 01:21 18 97 Room Air 05/04/20 00:23 98.1 88 107/63 (78) 98.1 EKG: EKG: [] Radiology/Procedures: Radiology/Procedures: PROCEDURE: LUMBAR SPINE 2-3V LUMBAR SPINE 2-3V, SACRUM COCCYX 3V DATE: 05/04/2020 1:08 AM INDICATION: Reason: pain, status post fall down stairs / Spl. Instructions: / History: COMPARISON: None. FINDINGS: Five non-rib bearing lumbar-type vertebral bodies are present. Bones/Alignment: No evidence of acute compression fracture. There is no listhesis. Sacral arcuate lines are maintained. Joints: There is no disc space loss. Hips, SI joints, and symphysis pubis are maintained. Miscellaneous: None. IMPRESSION: No evidence of acute lumbar compression fracture. No acute sacral fracture. Electronically signed by: Saul Castellon MD (05/04/2020 2:15 AM) [facility] PROCEDURE: SACRUM & COCCYX 3V LUMBAR SPINE 2-3V, SACRUM COCCYX 3V DATE: 05/04/2020 1:08 AM INDICATION: Reason: pain, status post fall down stairs / Spl. Instructions: / History: COMPARISON: None. FINDINGS: Five non-rib bearing lumbar-type vertebral bodies are present. Bones/Alignment: No evidence of acute compression fracture. There is no listhesis. Sacral arcuate lines are maintained. Joints: There is no disc space loss. Hips, SI joints, and symphysis pubis are maintained. Miscellaneous: None. IMPRESSION: No evidence of acute lumbar compression fracture. No acute sacral fracture. Electronically signed by: Saul Castellon MD (05/04/2020 2:15 AM) [facility] Course & Med Decision Making: Course & Med Decision Making Pertinent Imaging studies reviewed. (See chart for details) 24 yo female presents with low back pain that began after a fall down 10 stairs. The patient did not hit her head or lose consciousness. Xray of sacrum and lumbar spine obtained and demonstrated no acute findings. Symptomatic treatment provided. K Tracs report obtained. Hydrocodone last prescribed in February. Patient stable for discharge with outpatient follow-up with PCP. Discussed findings and plan with patient, who acknowledges understanding and agreement. Alexsandra Disclaimer: Alexsandra Disclaimer: This electronic medical record was generated, in whole or in part, using a voice recognition dictation system. Departure Departure Impression: Primary Impression: Back pain Qualified Codes: M54.5 - Low back pain Disposition: 01 [place] HOME SELF CARE/HOMELESS Condition: STABLE Referrals: NO PCP (PCP) DANIEL AYALA MD Patient Instructions: Back Pain, Adult, [id number] Scripts Hydrocodone/Apap 5-325 (NORCO 5-325 TABLET) 1 Each Tablet 0.5-1 TAB PO PRN Q6HRS PRN for PAIN, #10 TAB 0 Refills Prov: ABDIAZIZ HAWTHORNE DO 05/04/20 Orphenadrine Citrate (ORPHENADRINE CITRATE) 100 Mg Tablet.er 100 MG PO BID PRN for MUSCLE PAIN, #14 TAB Prov: ABDIAZIZ HAWTHORNE DO 05/04/20 ABDIAZIZ HAWTHORNE DO May 04, 2020 02:02
--- NOTE | 2020-05-04 02:18 | RAD ---
LUMBAR SPINE 2-3V, SACRUM COCCYX 3V DATE: 05/04/2020 1:08 AM INDICATION: Reason: pain, status post fall down stairs / Spl. Instructions: / History: COMPARISON: None. FINDINGS: Five non-rib bearing lumbar-type vertebral bodies are present. Bones/Alignment: No evidence of acute compression fracture. There is no listhesis. Sacral arcuate lines are maintained. Joints: There is no disc space loss. Hips, SI joints, and symphysis pubis are maintained. Miscellaneous: None. IMPRESSION: No evidence of acute lumbar compression fracture. No acute sacral fracture. Electronically signed by: Saul Castellon MD (05/04/2020 2:15 AM) DONALD
[2020-05-04] MEDS ORDERED: ORPH100T PO (02:45)
[2020-05-04] MEDS ORDERED: HYDR-3164 PO (02:45)
[2020-05-04 02:57] VITALS: BP 106/64
== END 2020-05-04 02:59 | disposition home or self-care (01) ==
LOC: ER
DX: M54.5 Low back pain (principal); M53.3 Sacrococcygeal disorders, not elsewhere classified; J45.909 Unspecified asthma, uncomplicated; G89.11 Acute pain due to trauma; F31.9 Bipolar disorder, unspecified; Z86.14 Personal history of Methicillin resistant Staphylococcus aureus infection; F17.200 Nicotine dependence, unspecified, uncomplicated; Z88.0 Allergy status to penicillin; Z88.7 Allergy status to serum and vaccine; W10.8XXA Fall (on) (from) other stairs and steps, initial encounter; Y93.89 Activity, other specified; Y92.89 Other specified places as the place of occurrence of the external cause; Y99.8 Other external cause status
CPT/HCPCS: 72100; 72220; 81025; 99284